=== PATIENT | male | born 1985 | race Hispanic/Latino ===

== ENCOUNTER → 2016-06-10 | Outpatient (REF) | payer OTHER ==
[2016-06-10 12:45] LABS: IMMOTILITY 97 %; NON PROGRESSIVE MOTILITY (c) 3 %; PROGRESSIVE MOTILITY (a) 0 % (>=32); TOTAL MOTILITY 3 % (>=40)
[2016-06-10 12:46] LABS: % NORMAL FORMS < 4 % (>=4); SPERM# 48.4 M/Ejac (33-46); TOTAL PROGRESSIVE SPERM 0 M/Ejac.
[2016-06-10 12:59] LABS: TOTAL FUNCTIONAL 0 M/Ejac.
== END ==
LOC: M LAB REF 12:37
PROVIDERS: ATTEND Urology
DX: N46.9 Male infertility, unspecified (principal)

== ENCOUNTER → 2016-06-11 | Outpatient (CLI) | payer OTHER | LOC: M SMT 09:15 | PROVIDERS: ATTEND Urology | DX: N64.9 Disorder of breast, unspecified (principal) ==

== ENCOUNTER → 2017-03-10 | Outpatient (REF) | payer OTHER ==
[2017-03-10 09:50] LABS: IMMOTILITY 86 %; NON PROGRESSIVE MOTILITY (c) 14 %; PROGRESSIVE MOTILITY (a) 0 % (>=32); SPERM ABNORMAL FORMS WBC'S NOTED; SPERM# 24 M/Ejac (>=39); TOTAL MOTILITY 14 % (>=40); TOTAL PROGRESSIVE SPERM 0 M/Ejac.
== END ==
LOC: M SMT 09:32
PROVIDERS: ATTEND Urology
DX: N46.9 Male infertility, unspecified (principal)

== ENCOUNTER → 2017-03-10 | Outpatient (CLI) | payer OTHER | LOC: M LAB 09:39 | DX: N46.9 Male infertility, unspecified (principal) | CPT/HCPCS: 84403 ==

== ENCOUNTER → 2017-07-15 | Outpatient (REF) | payer OTHER ==
[2017-07-15 12:25] LABS: IMMOTILITY 96 %; NON PROGRESSIVE MOTILITY (c) 4 %; PROGRESSIVE MOTILITY (a) 0 % (>=32); SEMEN APPEARANCE OPAQUE (OPAQUE); SEMEN VISCOSITY VISCOUS (LIQUID); SPERM CONCENTRATION 20.7 M/ml (>=15.0); SPERM# 41.3 M/Ejac (>=39); TOTAL MOTILITY 4 % (>=40); TOTAL PROGRESSIVE SPERM 0 M/Ejac.; WBC CONCENTRATION <=1 M/ml (<=1 M/ml)
== END ==
LOC: M SMT 11:39
DX: N46.11 Organic oligospermia (principal)
CPT/HCPCS: 89320